=== PATIENT | female | born 1925 | race Caucasian/White ===

== ENCOUNTER → 2016-07-05 | Outpatient (CLI) | payer MEDICARE, BC, OTHER ==
[~2016-07-05] MED LIST: ACETAMINOPHEN PO; ADVAIR; ADVAIR 250-501 EAC1 INH; ADVAIR 2501 DISK W/D PO; ADVAIR 500-501 EACH; ADVAIR 5001 DISK W/D PO; AL-MAG HYDROX-S30 M1 PO; ALBUTEROL17 GM; ALBUTEROL17 GM NEB; ALPRAZOLAM PO; APAP325 M1 PO; BENADRYL PO; BENICAR20 MG PO; CATAPRES0.1 MG PO; COMBIVENT INH14.7 GM INH; COMBIVENT U/D3 M1 INH; COMBIVENT14.7 GM INH; COUMADIN PO; COUMADIN2.5 MG PO; COUMADIN5 MG PO; DOCUSATE SODIU100 MG PO; FLONASE 0.05% N16 G1; HCTZ PO; HUMIBID-LA600 MG PO; LOVENOX40 MG/0.4 SQ; LOW DOSE ASPIRI81 M1 PO; MORGIDOX100 MG PO; NORVASC PO; NORVASC10 MG PO; NORVASC2.5 MG PO; OCEAN45 ML; OMEPRAZOLE20 M2 PO; PREDNISONE PO; PREDNISONE10 MG/DOSE PO; PREVACID 24HR15 MG PO; PREVACID PO; PREVACID15 MG PO; PROTONIX PO; SPIRIVA18 MCG INH; VALTURNA 300-321 TAB DOB; VALTURNA 300-321 TAB PO; VICODIN 5/1 TAB 5/50 PO; ZANTAC PO; ZITHROMAX PO; [UNRECOGNIZED DRUG - OTHER]
--- NOTE | ~2016-07-05 | CT57 ---
[facility] A Service of [facility] & [facility] RADIOLOGY TEXT RESULTS PATIENT: DRAKE RICHARDS LOCATION: [facility] : [birth year] UNIT #: [id number] AGE: [address]: Trina Weeks APRN SEX: F ORDER DR: [id number] [facility] [address] [place], [place] [address] [id number] O MR#: [id number] Acc #: [id number] NAME: DRAKE RCIHARDS : 1925 SEX: F STUDY DATE/TIME: 07/05/2016 13:58 UNIT: [facility] ROOM: STUDY DESCRIPTION: CT Chest Wo Cont Attending Physician: Trina Weeks A.P.R.N. Referring Physician: Trina Weeks A.P.R.N. Ordering Physician: Trina Weeks A.P.R.N. Primary Care Physician: Wayne Bansal M.D. MEDICAL IMAGING REPORT This report is preliminary unless electronic signature is present EXAM CT of the chest without contrast INDICATIONS Congestion for 2 days. Patient had a prior abnormal chest CT in November of 2015. This did show multifocal tree-in-bud nodularity and ground-glass opacification within the lungs. TECHNIQUE Axial CT images were obtained from the thoracic inlet through the dome of the diaphragm. No intravenous contrast was administered. This CT exam was performed with one or more of the following radiation dose reduction techniques: automatic control, adjustment of mA and/or kV according to patient size, and iterative reconstruction. FINDINGS Patient has background emphysematous changes. There are tree-in-bud infiltrates seen throughout both lungs. Similar findings have been present on exams dating back to October of 2013. A ground-glass infiltrate is noted within the right upper lobe. This is measuring up to about 2.2 cm previously about 2.1 cm in 06/2015. I do not see any new pulmonary nodules or masses. The thyroid gland is mildly atrophic. Trachea is within normal limits. The patient does have a small hiatal hernia. There is no pleural or pericardial effusion. Mediastinal lymph nodes do not appear pathologically enlarged. 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 Images through the upper abdomen demonstrate changes of prior cholecystectomy and extensive atherosclerotic involvement of the abdominal aorta do not see any acute findings within the upper abdomen. Review of bony windows does not demonstrate any aggressive osseous abnormalities. IMPRESSION [facility]. [facility] A Service of [facility] & [facility] RADIOLOGY TEXT RESULTS PATIENT: DRAKE RICHARDS LOCATION: [facility] : [birth year] UNIT #: [id number] AGE: [address]: Trina Weeks CREDIT ASSESSMENT ANALYST SEX: F ORDER DR: 1. Background emphysematous changes with chronic appearing tree-in-bud infiltrates seen throughout both lungs, the ones at the bases in particular have been present and stable since about October of 2013. There is a ground-glass infiltrate seen at the right lung apex which is indeterminate. I think it is stable to perhaps minimally increased when compared to the prior study from October of 2015. I would suggest continued surveillance with next followup in 6 months. 2. Small hiatal hernia. Dictated by... Yin Schaefer M.D. THIS IS AN ELECTRONICALLY VERIFIED REPORT Yin Schaefer M.D. at 07/09/2016 12:59 PM AFF/rnr TD: 07/07/2016 04:05 JOB #: [id number] MEDICAL IMAGING REPORT Page 1 of 1 COPY
== END | disposition home or self-care (01) ==
LOC: CCAT 13:07
DX: R93.8 Abnormal findings on diagnostic imaging of other specified body structures (principal); R91.8 Other nonspecific abnormal finding of lung field; K44.9 Diaphragmatic hernia without obstruction or gangrene
CPT/HCPCS: 71250